=== PATIENT | female | born 2000 | race Caucasian/White ===

== ENCOUNTER 2021-09-04 02:29 | Outpatient (CLI) | payer BC, OTHER, MEDICAID ==
[~2021-09-04] VITALS: Wt 95.9 kg
[~2021-09-04 02:29] MED LIST: BACTRIM DS 8001 TAB PO; FLEXERIL 1010 MG/TAB PO; NORCO 325 MG-51 TAB PO; OMNICEF 300MG300 MG PO; ZOFRAN ODT4 MG PO
--- NOTE | 2021-09-04 02:45 | NUR ---
0245- PATIENT AMBULATORY TO THE UNIT WITH SPOUSE AT HER SIDE. PATIENT IS 34.3 AND PRESENTS WITH SEVERE EPIGASTRIC PAIN THAT RADIATES TO HER RIGHT SIDE AND POSSIBLE UTI SYMPTOMS. PATIENT REPORTS GFM, NO LOF OR BLEEDING AND NO CONTRACTIONS THAT SHE IS AWARE OF. 0250 - EFM AND TOCO ON AND TRACING. VITALS TAKEN, ASSESSMENT COMPLETED AND PLAN OF CARE DISCUSSED.
[2021-09-04] MEDS ORDERED: PRENATAL TABLET PO (03:20)
[2021-09-04 03:24] VITALS: BP 115/72; PULSE 82; TEMP 97.9
[2021-09-04] MEDS ORDERED: MACROBID 1100 MG/CAP PO (03:42)
== END 2021-09-04 03:45 | disposition home or self-care (01) ==
LOC: LDRO 02:29
DX: O26.893 Other specified pregnancy related conditions, third trimester (principal); M54.9 Dorsalgia, unspecified; R10.13 Epigastric pain; Z3A.34 34 weeks gestation of pregnancy

== ENCOUNTER 2023-09-16 21:58 | Emergency (ER) | payer OTHER ==
[~2023-09-16 21:58] MED LIST changes: +MACROBID 1100 MG/CAP PO; +PRENATAL TABLET PO
[2023-09-16 22:15] VITALS: TEMP 97.7
[2023-09-16] MEDS ORDERED: LOVENOX 8080 MG/0.8 SQ (23:37)
--- NOTE | 2023-09-17 00:30 | NUR ---
THIS PATIENT IS 33WKS IN THE ER GETTING A WORK UP FOR A BLOOD CLOT IN THE RIGHT LOWER EXTREMITY. PT DENIES LOF/VB/CONTRACTIONS. 2357: PLACED ON EFM. 0017: HEART TONES CATEGORY 1 TRACING WITH NO DECELS. NO CONTRACTIONS. OUTCOME OF EFM IS STABLE AND REPORTED TO THE PRIMARY ED RN FOR THIS PATIENT. NO OTHER CONCERNS AT THIS TIME.
[2023-09-17 00:35] VITALS: BP 128/61; PULSE 88
== END 2023-09-17 00:37 | disposition home or self-care (01) ==
LOC: COL.ER 21:58
DX: O26.893 Other specified pregnancy related conditions, third trimester (principal); M79.89 Other specified soft tissue disorders; R79.89 Other specified abnormal findings of blood chemistry; Z3A.33 33 weeks gestation of pregnancy
CPT/HCPCS: J1650

== ENCOUNTER → 2023-09-19 | Outpatient (CLI) | payer OTHER ==
[~2023-09-19] MED LIST changes: +LOVENOX 8080 MG/0.8 SQ
== END ==
LOC: COL.RAD 07:50
DX: M79.89 Other specified soft tissue disorders (principal)

== ENCOUNTER 2023-10-26 14:44 | Inpatient (IN) | payer OTHER ==
[~2023-10-26] VITALS: Ht 165.2 cm; Wt 93.6 kg
[~2023-10-26 14:44] MED LIST changes: +LR 1,000 ML IV SCH; +Ondansetron 4 MG/2 ML VIAL IV SCH
[2023-10-27] VITALS (18 sets, daily range): BP systolic 96–136; BP diastolic 52–80; PULSE 55–79; TEMP 97.4–98
[2023-10-27] MEDS ORDERED: LR 1,000 ML IV SCH (07:00)
[2023-10-27] MEDS ORDERED: DULCOLAX TAB5 MG PO (07:49)
[2023-10-27] MEDS ORDERED: BENADRYL25 M2 PO (07:50)
[2023-10-27 08:35] LABS: BASO % 0.3 % (0.0-2.0); EOS # 0.1 K/mm3 (0.0-0.7); EOS % 1.4 % (0.0-4.0); GRAN # 4.7 K/mm3 (1.4-6.5); GRAN % 65.8 % (42.2-75.2); HEMOGLOBIN 10.7 g/dl (12.5-16.0); LYMPH # 1.7 K/mm3 (1.2-3.4); LYMPH % 23.5 % (20.0-51.0); MEAN CELL VOLUME 86 fl (80.0-100.0); MEAN CORPUSCULAR HEMOGLOBIN 27 pg (27-31); MEAN CORPUSCULAR HGB CONC 32 g/dl (33.0-37.0); MEAN PLATELET VOLUME 12.9 fl (7.4-10.4); MONO # 0.6 K/mm3 (0.1-0.6); MONO % 8.7 % (1.7-9.3); PLATELET COUNT 134 K/mm3 (130-400); RED BLOOD COUNT 3.94 M/mm3 (4.10-5.30)
[2023-10-27] MEDS ORDERED: Ondansetron 4 MG/2 ML VIAL ONE (08:44)
[2023-10-27 08:51] LABS: HEMATOCRIT 33.7 % (37.0-47.0)
[2023-10-27] MEDS ORDERED: SODIUM CHLORIDE IV ONE (09:00)
[2023-10-27] MEDS ORDERED: GENTAMICIN IV ONE (09:00)
[2023-10-27] MEDS ORDERED: CLINDAMYCIN 900 MG/50 ML IV ONE (09:00)
[2023-10-27] MEDS ORDERED: NS 10 ML IV ONE (09:03)
[2023-10-27] MEDS ORDERED: Oxytocin 10 UNITS/ML VIAL ONE (09:21)
--- NOTE | 2023-10-27 09:24 | NUR ---
Initial visit; Junito and her are awaiting for her to have her . Junito is feeling anxious since she's never experienced this "Procedure." Strainer Tender reassured her that she is in good hands and offered prayer for a healthy mom and baby. Strainer Tender said she will be in Monday to see him or her. Strainer Tender left them smiling.
[2023-10-27] MEDS ORDERED: Meperidine 50 MG/ML 1 ML VIAL ONE (09:33)
[2023-10-27] MEDS ORDERED: EPINEPHrine 1 MG/1 ML Ampule ONE (09:38)
[2023-10-27] MEDS ORDERED: LR 1,000 ML IV ONE (09:47)
[2023-10-27] MEDS ORDERED: Ketorolac 60 MG/2 ML VIAL IM ONE (09:54)
[2023-10-27] MEDS ORDERED: Loratadine 10 MG TAB PO PRN (10:15)
[2023-10-27] MEDS ORDERED: Magnes Hydrox (MOM) 80 MG/ML 30 ML CUP PO PRN (10:15)
[2023-10-27] MEDS ORDERED: Measles/Mumps/Rubella Virus Vaccine Live w Diluent 0.5 ML VIAL SQ SCH (11:30)
[2023-10-27] MEDS ORDERED: LR 1,000 ML IV PRN (11:30)
[2023-10-27] MEDS ORDERED: oxyCODONE 5 MG TAB PO PRN (11:30)
[2023-10-27] MEDS ORDERED: Ondansetron 4 MG/2 ML VIAL IV PRN ×2 (11:30)
[2023-10-27] MEDS ORDERED: Morphine 4 MG/ML VIAL IV PRN (11:30)
[2023-10-27] MEDS ORDERED: Acetaminophen 500 MG TAB PO SCH (11:30)
[2023-10-27] MEDS ORDERED: Naloxone 0.4 MG/ML VIAL IV PRN (11:30)
[2023-10-27] MEDS ORDERED: Ibuprofen 600 MG TAB PO SCH (16:04)
[2023-10-27] MEDS ORDERED: Sennosides/Docusate 8.6-50 MG TAB PO SCH (17:00)
[2023-10-27] MEDS ORDERED: traZODone 50 MG TAB PO PRN (21:00)
[2023-10-28 03:40] VITALS: BP 118/60; PULSE 60; TEMP 97.5
[2023-10-28 06:52] LABS: HEMATOCRIT 30.2 % (37.0-47.0); HEMOGLOBIN 9.6 g/dl (12.5-16.0)
[2023-10-28 07:00] VITALS: BP 107/65; PULSE 78; TEMP 98
[2023-10-28] MEDS ORDERED: Prenatal Vitamins/Iron/FA TAB PO SCH (09:00)
[2023-10-28 16:30] VITALS: BP 117/68; PULSE 87
[2023-10-28 19:00] VITALS: BP 106/66; PULSE 59; TEMP 97.6
[2023-10-28] MEDS ORDERED: Ibuprofen 600 MG TAB PO SCH (23:00)
[2023-10-29 08:37] VITALS: BP 105/64; PULSE 59
[2023-10-29] MEDS ORDERED: TYLENOL 500MG500 MG PO (09:42)
[2023-10-29] MEDS ORDERED: IBU600 MG PO (09:42)
[2023-10-29] MEDS ORDERED: ROXICODONE 55 MG/TAB PO (09:42)
== END 2023-10-29 11:12 | disposition home or self-care (01) | DRG 788 ==
LOC: OB 14:44
PROVIDERS: ADMIT Obstetrics & Gynecology
PROC: 10D00Z1 Extraction of Products of Conception, Low, Open Approach (ICD-10-PCS; principal; 2023-10-27)
DX: O36.63X0 Maternal care for excessive fetal growth, third trimester, not applicable or unspecified (principal); Z37.0 Single live birth; O99.02 Anemia complicating childbirth; D64.9 Anemia, unspecified; O99.344 Other mental disorders complicating childbirth; F41.9 Anxiety disorder, unspecified; F32.A Depression, unspecified; F90.9 Attention-deficit hyperactivity disorder, unspecified type; Z88.8 Allergy status to other drugs, medicaments and biological substances; Z3A.39 39 weeks gestation of pregnancy
CPT/HCPCS: J0171; J0665; J0737; J1885; J2175; J2405; J2590; J7120